=== PATIENT | female | born 1975 | race Caucasian/White ===

== ENCOUNTER 2018-08-30 06:10 | Day surgery (SDC) | payer BC, OTHER ==
[2018-08-29 13:54] VITALS: BMI 25.3
[2018-08-30] MEDS ORDERED: LIDOCAINE HCL/PF 2% SDV 5ML VIAL ONE (07:19)
[2018-08-30] MEDS ORDERED: ROCURONIUM BROMIDE 50 MG/5 ML VIAL ONE (07:19)
[2018-08-30] MEDS ORDERED: PROPOFOL 20 ML ONE (07:19)
[2018-08-30] MEDS ORDERED: SUCCINYLCHOLINE CHLORIDE 200 MG/10 ML VIAL ONE (07:19)
[2018-08-30] MEDS ORDERED: DEXAMETHASONE SOD PHOSPHATE 4 MG/1 ML VIAL ONE (07:19)
[2018-08-30] MEDS ORDERED: fentaNYL CITRATE 250 MCG/5 ML VIAL ONE (07:19)
[2018-08-30] MEDS ORDERED: BUPIVACAINE HCL/PF 0.5% (5MG/ML) 10 ML VIAL ONE (07:24)
[2018-08-30] MEDS ORDERED: DESFLURANE GAS 240 ML BOTTLE IH ONE (07:27)
[2018-08-30] MEDS ORDERED: BUPIVACAINE HCL/PF (5 MG/ML) 30 ML VIAL IJ ONE ×3 (07:44→08:48)
[2018-08-30] MEDS ORDERED: MIDAZOLAM HCL 2 MG/2 ML SINGLE DOSE VIAL ONE (07:52)
[2018-08-30] MEDS ORDERED: oxyCODONE HCL 5 MG TABLET PO PRN (08:01)
[2018-08-30] MEDS ORDERED: ONDANSETRON 4 MG/2 ML VIAL IVPUSH PRN (08:01)
[2018-08-30] MEDS ORDERED: SODIUM CHLORIDE 1,000 ML IV SCH (08:15)
[2018-08-30] MEDS ORDERED: CLINDAMYCIN 600 MG PREMIX BAG IVPB ONE (08:27)
[2018-08-30] MEDS ORDERED: CLINDAMYCIN PHOSPHATE 600 MG/4 ML VIAL ONE (08:29)
[2018-08-30] MEDS ORDERED: HEPARIN NA (PORCINE) 5,000 UNITS/ML 1ML VIAL ONE ×2 (09:08→09:11)
[2018-08-30] MEDS ORDERED: NEOSTIGMINE METHYLSULFATE 0.5 MG/ML - 10 ML MDV ONE (09:11)
[2018-08-30] MEDS ORDERED: GLYCOPYRROLATE 0.2 MG/1 ML VIAL ONE (09:11)
--- NOTE | 2018-08-30 09:23 | HP ---
Satellite H - Chief Complaint History of Present Illness: 42 year old woman with chronic kidney disease stage 5 needs peritoneal catheter for planned dialysis. History Source: Patient - Past Medical History Allergies/Adverse Reactions: Allergies Allergy/AdvReac Type Severity Reaction Status Date / Time Penicillins Allergy Severe Difficulty Verified 08/29/18 13:45 Breathing Renal/: Yes: Renal Failure ...LMP: 06/14/18 Heme/Onc: Yes: Hypercoaguable State - Current Medications Current Medications: Home Medications Medication Instructions Recorded Carvedilol 25 mg PO BID 08/29/18 Famotidine 20 mg PO DAILY 08/29/18 Hydroxychloroquine Sulfate 200 mg PO BID 08/29/18 [Plaquenil] Prednisone 10 mg PO DAILY 08/29/18 Sevelamer HCl 1,600 mg PO TID 08/29/18 Torsemide 100 mg PO BID 08/29/18 Warfarin Na [Coumadin] 2.5 mg PO DAILY 08/29/18 Warfarin Na [Coumadin] 5 mg PO DAILY 08/29/18 Amlodipine Besylate [Norvasc -] 5 mg PO DAILY 08/30/18 Satellite Physical Exam - Physical Examination Vital Signs: Vital Signs Period Temp Pulse Resp BP Sys/Bain Pulse Ox Last 24 Hr 98.0 F-98.0 F 73-73 18-18 119-119/70-70 100 General Appearance: Well Nourished ENT: Clear Lung: Clear to auscultation Heart: Regular rate & rhythm Abdomen: Soft, No tenderness Extremities: No edema Satellite Impression/Plan - Impression/Plan Impression: CKD stage 5 Operative Procedure: Laparoscopy, placement peritoneal dialysis catheter Date to be Performed: 08/30/18
--- NOTE | 2018-08-30 09:25 | OP ---
Operative Note - Note: Operative Date: 08/30/18 Pre-Operative Diagnosis: Chronic Kidney Disease Operation: Laparoscopy, placement peritoneal dialysis catheter, lysis of adhesions, omentopexy Findings: Adhesion of omentum to anterior abdominal wall and LLQ Thick omentum filling pelvis Implants: Curled Tenckhoff catheter Post-Operative Diagnosis: Same as Pre-op Surgeon: Jose R Cole Cosmetology Professor: Kirk Byers Anesthesiologist/COVER CREASER: Nara Martin Anesthesia: General Estimated Blood Loss (mls): 5
--- NOTE | 2018-08-30 09:55 | SURG ---
Surgery Foundry Supervisor Note Foundry Supervisor: Kirk Byers PA-C Date of Service: 08/30/18 Diagnosis: end stage renal failure Procedure: Laparoscopy, placement peritoneal dialysis catheter, lysis of adhesions, omentopexy I was present for the entirety of the operative procedure. For further detail, please refer to operative report. Visit type - Case Type Case Type: Scheduled - Emergency Emergency Visit: No - New patient This patient is new to me today: Yes Date on this admission: 08/30/18
--- NOTE | 2018-08-30 10:10 | OP ---
DATE OF OPERATION: 08/30/2018 SURGEON: Jose R Cole MD ENHANCED ENVIRONMENTAL OPERATOR: DEANN Stroud PROCEDURE: Laparoscopy with placement of peritoneal dialysis catheter, lysis of adhesions, omentopexy. PREOPERATIVE DIAGNOSIS: Chronic kidney disease. POSTOPERATIVE DIAGNOSIS: Chronic kidney disease with intra-abdominal adhesions. ANESTHESIA: General. ANESTHESIOLOGIST: Nara Martin MD OPERATIVE FINDINGS: There was thick omentum filling the pelvis. There were adhesions of omentum to the anterior abdominal wall and left lower quadrant. OPERATIVE PROCEDURE: Following routine patient identification, general anesthesia was induced. The abdomen was prepped with ChloraPrep. Timeout was performed. A Veress needle was inserted atraumatically through the umbilicus and pneumoperitoneum was established with carbon dioxide to 15 mmHg pressure. Marcaine was infiltrated in all sites of incision. An incision was made in the right abdominal wall and a 5-mm Optiview placed with the laparoscope into the peritoneal cavity. The Veress needle was removed. A 5-mm angled scope was then used to explore the abdomen. A second 5-mm port was placed in the left abdominal wall under direct vision. A LigaSure device was used to divide the adhesions of the omentum to the anterior abdominal wall and then the omentum was gently elevated superiorly. An adhesion to the left lower quadrant sigmoid colon was identified and this was also divided with the LigaSure. A stab wound was made on the left upper quadrant abdominal wall and a suture passer with a 2-0 Prolene suture was then advanced into the peritoneal cavity and through a portion of the greater omentum. The suture was then grasped with the suture passer and pulled out of the incision and tied securely to fix the omentum in the right upper quadrant. Incision was then made to the right and above the umbilicus. An 8-mm bladeless trocar was then advanced until the tip was seen above the peritoneum. The trocar was then directed inferiorly towards the pelvis where it entered the abdominal cavity. A curled swan neck double-cuff Tenckhoff catheter was then straightened with a stylette and advanced through the 8-mm port and deployed in the pelvis. The port was removed, leaving the inner cuff at the level of the fascia. The other end of the catheter was attached to a curved tunneler which was passed in the subcutaneous plane to exit on the left side of the abdominal wall at the previously chosen site. Pneumoperitoneum was evacuated. The Luer lock adapter was attached to the catheter. One liter of saline was run into the peritoneal cavity under gravity drainage in 3 minutes. The bag was dropped to the floor and the fluid drained easily. All ports were removed. All incisions were closed with subcutaneous sutures of 3-0 Vicryl and subcuticular suture of 4-0 Biosyn. Dermabond glue was applied as dressing to all incisions. The catheter was fixed to the skin with a Tegaderm and covered with an ABD pad. The patient was extubated, taken to the recovery room in stable condition. Carlito [id number]
[2018-08-30 10:47] VITALS: TEMP 97.4
[2018-08-30] MEDS ORDERED: oxyCODONE HCL 5 MG TABLET ONE (11:53)
[2018-08-30] MEDS ORDERED: oxyCODONE HCL 5 MG TABLET PO ONE (11:55)
[2018-08-30 13:55] VITALS: BP 113/65; PULSE 87
== END 2018-08-30 12:50 | disposition home or self-care (01) ==
LOC: JASU-SURG 06:10
PROVIDERS: ATTEND Surgery
PROC: 0WHG43Z Insertion of Infusion Device into Peritoneal Cavity, Percutaneous Endoscopic Approach (ICD-10-PCS; principal; 2018-08-30 08:00)
DX: I12.0 Hypertensive chronic kidney disease with stage 5 chronic kidney disease or end stage renal disease (principal); N18.6 End stage renal disease; Z99.2 Dependence on renal dialysis
CPT/HCPCS: 36415; 84132; 84703; 94760; J1644